=== PATIENT | female | born 1980 | race Caucasian/White ===

== ENCOUNTER → 2016-08-26 | Outpatient (CLI) | payer BC ==
[~2016-08-26] MED LIST: BCPILLS PO; MULT-506 PO
[2016-08-26 17:32] LABS: BASO % 0.3 %; BASO ABS # 0.03 K/uL (0-0.2); COMPLETE YES; EOS % 0.9 %; HEMATOCRIT 39.8 % (37-47); IG% 0.2 %; LYMPH % 37.5 %; LYMPH ABS # 4.07 K/uL (1.2-3.4); MEAN CELL VOLUME 94.1 fL (80-100); MEAN CORPUSCULAR HEMOGLOBIN 32.2 pg (25-34); MEAN CORPUSCULAR HGB CONC 34.2 g/dl (32-36); MEAN PLATELET VOLUME 11.5 fL (7.4-10.4); MONO % 5.3 %; NEUT % 55.8 %; PLATELET COUNT 235 K/uL (130-400); RED BLOOD COUNT 4.23 M/uL (4.2-5.4); WHITE BLOOD COUNT 10.85 K/uL (4.8-10.8)
[2016-08-26 17:45] LABS: ALKALINE PHOSPHATASE 40 U/L (45-117); ALT/SGPT 23 U/L (12-78); AMYLASE 69 U/L (25-115); AST/SGOT 18 U/L (15-37); BLOOD UREA NITROGEN 15 mg/dl (7-18); BUN/CREATININE RATIO 22.5 (10-20); CALCIUM 8.6 mg/dl (8.5-10.1); CARBON DIOXIDE 30 mmol/L (21-32); CHLORIDE 107 mmol/L (98-107); CREATININE 0.66 mg/dl (0.60-1.20); GLUCOSE 89 mg/dl (70-99); POTASSIUM 4.1 mmol/L (3.5-5.1); SODIUM 142 mmol/L (136-145)
== END | disposition home or self-care (01) ==
LOC: C.LABSPEC 17:02
PROVIDERS: ATTEND Family Medicine
DX: R10.11 Right upper quadrant pain (principal)

== ENCOUNTER → 2016-08-27 | Outpatient (CLI) | payer BC ==
--- NOTE | 2016-08-27 15:34 | DIAGNOSTIC IMAGING REPORT ---
ULTRASOUND ABDOMEN COMPLETE CLINICAL HISTORY: Right upper quadrant abdominal pain. COMPARISON STUDY: Abdominal ultrasound dated 04/09/2015. TECHNIQUE: Real-time, grayscale, and color flow sonography of the abdomen was performed. Images are reviewed in the transverse and longitudinal planes. FINDINGS: Liver: The liver is normal in size and echotexture. There is no intrahepatic biliary ductal dilatation. A 10 mm hypoechoic focus is questioned in the right lobe. This is of doubtful significance. The main portal vein is patent. Gallbladder: The gallbladder is normal in appearance. No gallstones are identified. There is no gallbladder wall thickening or pericholecystic fluid. A sonographic Powell's sign is reportedly absent. The common bile duct measures up to 0.4 cm in diameter. Pancreas: Visualized portions of the pancreatic head and body are normal in appearance. The splenic vein is patent. Spleen: The spleen is normal in size and echotexture, measuring 9.9 cm in length. Kidneys: The kidneys are normal in size and echotexture. There is no hydronephrosis. The right kidney measures 11.2 cm in length and the left kidney measures 10.5 cm in length. No shadowing calculi are identified. Abdominal vasculature: Visualized portions of the abdominal aorta and IVC are normal as imaged. Ascites: None. IMPRESSION: No sonographic abnormality is identified. Electronically signed by: Wilfredo Ruiz M.D. 08/27/2016 3:31 PM Dictated Date/Time: 08/27/2016 3:24 PM
== END | disposition home or self-care (01) ==
LOC: C.ULTRBC 14:34
PROVIDERS: ATTEND Family Medicine
DX: R10.11 Right upper quadrant pain (principal)

== ENCOUNTER → 2017-02-10 | Outpatient (CLI) | payer BC | END | disposition home or self-care (01) | LOC: C.PAPS 14:05 | PROVIDERS: ATTEND Obstetrics & Gynecology | DX: Z01.419 Encounter for gynecological examination (general) (routine) without abnormal findings (principal) ==

== ENCOUNTER → 2017-06-17 | Outpatient (CLI) | payer OTHER ==
--- NOTE | 2017-06-17 10:00 | DIAGNOSTIC IMAGING REPORT ---
RIGHT KNEE 3 VIEWS CLINICAL HISTORY: Disorder of bony development. Lump anterior to the knee. FINDINGS: AP, lateral, and sunrise views of the right knee are compared to study dated 12/17/2011. The skeletal structures are well mineralized. No fracture is seen. A marker at the site of concern has been placed over the tibial tuberosity which is slightly prominent. This likely corresponds to the finding of palpable concern. The joint spaces of the knee are maintained. No joint effusion is identified. The overlying soft tissues are within normal limits. IMPRESSION: 1. No acute bony abnormality is seen in the right knee. 2. The finding of concern corresponds to the tibial tuberosity. This is unchanged in appearance from the 2012 examination. Electronically signed by: Wilfredo Ruiz M.D. 06/17/2017 9:59 AM Dictated Date/Time: 06/17/2017 9:57 AM
== END | disposition home or self-care (01) ==
LOC: C.RADBC 09:31
PROVIDERS: ATTEND Family Medicine
DX: M89.20 Other disorders of bone development and growth, unspecified site (principal)